=== PATIENT | female | born 1970 | race Caucasian/White ===

== ENCOUNTER 2019-05-25 02:55 | Inpatient (IN) | payer OTHER ==
[2019-05-25] MEDS ORDERED: ONDANSETRON 4 MG/2 ML VIAL ONE (03:49)
[2019-05-25] MEDS ORDERED: NA CHLORIDE 0.9% 1,000 ML ONE ×2 (03:49→09:02)
[2019-05-25 04:19] LABS: Absolute Lymphocytes (CBC) 2.7 K/uL (0.7-4.9); Basophils % 0.7 % (0-1.3); Eosinophils % 1.4 % (0-4.4); Lymphocytes % 24.3 % (15.3-44.8); MPV 9.2 fL (7.6-11.3); Monocytes % 9.6 % (3.3-12.3); RBC Red Blood Cell Count 3.84 M/uL (3.86-4.86)
[2019-05-25] MEDS ORDERED: NA CHLORIDE 0.9% 250 ML ONE (04:19)
[2019-05-25] MEDS ORDERED: PROMETHAZINE 25 MG/ML VIAL ONE ×3 (04:19→09:08)
[2019-05-25 04:43] LABS: ALT/SGPT 16 U/L (12-78); AST/SGOT 17 U/L (15-37); Albumin 3.6 g/dL (3.4-5.0); Alkaline Phosphatase 70 U/L (45-117); BUN Blood Urea Nitrogen 15 mg/dL (7-18); Bicarbonate 26 mmol/L (21-32); Bilirubin Direct < 0.1 mg/dL (0-0.2); Bilirubin Total 0.3 mg/dL (0.2-1.0); Glucose Level 142 mg/dL (74-106); Lipase 111 U/L (73-393); Magnesium 1.9 mg/dL (1.8-2.4); NT PRO-BNP 51 pg/mL (<125); Sodium Level 140 mmol/L (136-145); Troponin (Emerg Dept Use Only) < 0.02 ng/mL (0.0-0.045)
[2019-05-25] MEDS ORDERED: NA CHLORIDE 0.9% 100 ML IV ONE ×2 (04:44→05:02)
[2019-05-25] MEDS ORDERED: FAMOTIDINE 20 MG/2 ML VIAL IV ONE ×2 (04:44→09:02)
[2019-05-25] MEDS ORDERED: EPINEPHRINE/PF 1 MG/ML AMP ONE (05:51)
[2019-05-25] MEDS ORDERED: NA CHLORIDE 0.9% 500 ML ONE (06:10)
[2019-05-25] MEDS ORDERED: DIPHENHYDRAMINE 50 MG/ML VIAL ONE (06:10)
[2019-05-25] MEDS ORDERED: METOCLOPRAMIDE 10 MG/2mL INJ ONE (06:10)
[2019-05-25] MEDS ORDERED: KETOROLAC 30 MG/ML INJ ONE (06:49)
[2019-05-25] MEDS ORDERED: METRONIDAZOLE 500mg IVPB 500 MG/100 ML BAG IV ONE ×2 (06:49→10:56)
--- NOTE | 2019-05-25 06:59 | ER ---
Nurse's Notes [facility] Name: Rebekah Vila Age: 48 yrs Sex: Female : 1970 Arrival Date: 05/25/2019 Time: 02:57 Bed 6 Private MD: Diagnosis: acute abdominal pain;acute colitis;acute vomtiing and diarrhea Presentation: 05/25 03:20 Presenting complaint: Patient states: vomiting, now diarrhea, started two hours ago. I ch feel terrible. Transition of care: patient was not received from another setting of care. Onset of symptoms was May 25, 2019 at 01:30. Risk Assessment: Do you want to hurt yourself or someone else? Patient reports no desire to harm self or others. Initial Sepsis Screen: Does the patient meet any 2 criteria? No. Patient's initial sepsis screen is negative. Does the patient have a suspected source of infection? No. Patient's initial sepsis screen is negative. Care prior to arrival: None. 03:20 Method Of Arrival: Ambulatory 03:20 Acuity: TAIWO 2 Triage Assessment: 03:21 General: Appears distressed, uncomfortable, Behavior is anxious, restless. Pain: Complains of pain in abdomen Pain currently is 7 out of 10 on a pain scale. GI: Reports diarrhea, nausea, vomiting. Historical: - Allergies: 03:21 No Known Allergies; - Home Meds: 03:21 None [Active]; ch - PMHx: 03:21 intersticial cystitis; ch - PSHx: 03:21 None; 06:57 abdominoplasty; breast augmentation; - Immunization history:: Adult Immunizations up to date, Flu vaccine is not up to date. - Social history:: Smoking status: Patient/guardian denies using tobacco, Patient/guardian denies using alcohol, street drugs. - Ebola Screening: : Patient negative for fever greater than or equal to 101.5 degrees Fahrenheit, and additional compatible Ebola Virus Disease symptoms Patient denies exposure to infectious person Patient denies travel to an Ebola-affected area in the 21 days before illness onset No symptoms or risks identified at this time. - Family history:: not pertinent. - Hospitalizations: : No recent hospitalization is reported. Screenin:35 Abuse screen: Denies threats or abuse. Denies injuries from another. Nutritional ch screening: No deficits noted. Tuberculosis screening: No symptoms or risk factors identified. Fall Risk None identified. Assessment: 04:08 General: Appears in no apparent distress. uncomfortable. Neuro: Level of Consciousness ch is listless, Oriented to person, place, time, situation, Receivables Specialist are equal bilaterally Moves all extremities. Gait is steady, Speech is slurred, Facial symmetry appears normal, Facial symmetry: tongue is midline, Pupils are PERRLA, Reports dizziness, pt states she does not feel well, nauseous, dizzy, and "off". Cardiovascular: Heart tones S1 S2 present pt heart rate is irregular, heart sounds distant. . Capillary refill < 3 seconds in bilateral fingers toes pt extremities are cool, pt is extremely diaphoretic. . Pulses are all present. pulse is irregular, but strong. Respiratory: Airway is patent Respiratory effort is even, unlabored. GI: Abdomen is flat, non-distended, Pt is actively vomiting bile, undigested food, Bowel sounds present X 4 quads. Abd is soft and non tender X 4 quads. Reports lower abdominal pain, upper abdominal pain, cramping, diarrhea, nausea, vomiting. : No signs and/or symptoms were reported regarding the genitourinary system. Derm: Skin is intact, Skin is diaphoretic, Skin is pale, Skin temperature is cool. 04:27 Reassessment: Patient appears in no apparent distress at this time. pt is under bear hugger, states she feels better. pt sill c/o nausea. 05:00 Reassessment: pt has watery diarrhea. 05:47 Reassessment: 0510 pt is vomiting. medicated per orders. 0530, pt vomiting again. now pt is vomiting in bed. every time pt vomits, pt bradycardic into low 40's. 05:52 Reassessment: pt vomiting again. we are giving medications some time to work, pt verb understanding. 05:59 Reassessment: Patient appears in no apparent distress at this time. Patient and/or family updated on plan of care and expected duration. Pain level reassessed. pt vomiting again, medicated per orders. 06:31 Reassessment: Patient appears in no apparent distress at this time. Patient and/or family updated on plan of care and expected duration. Pain level reassessed. Patient is alert, oriented x 3, equal unlabored respirations, skin warm/dry/pink. pt no longer vomiting Patient states feeling better. Patient states symptoms have improved. 06:58 Reassessment: Patient appears in no apparent distress at this time. report given to [facility] floor nurse in case pt is admitted. awaiting next er shift. Vital Signs: 03:21 BP 160 / 89; Pulse 44; Resp 26; Temp 93.4(O); Pulse Ox 99% on R/A; Pain 10/10; ch 04:08 BP 132 / 77; Pulse 47; Resp 13; Temp 98(R); Pulse Ox 99% on R/A; Pain 7/10; ch 04:50 BP 122 / 64; Pulse 62; Resp 22; Temp 97(O); Pulse Ox 99% on R/A; Pain 7/10; ch 05:20 BP 140 / 85; Pulse 39; Resp 22; Temp 97.8(O); Pulse Ox 99% on R/A; Pain 6/10; ch 05:48 BP 117 / 76; Pulse 64; Resp 15; Pulse Ox 99% on R/A; Pain 4/10; ch 06:31 BP 111 / 66; Pulse 70; Resp 16; Temp 98.8; Pulse Ox 99% on R/A; Pain 4/10; ch 03:21 pt has been vomiting and needs to have diarrhea. will recheck temp once pt is not ch vomiting 04:08 pt repeat oral temp was 94.3. rectal performed to get core temp 04:50 pt HR has increased since fluids, medication, and bear hugger. Vitals: 04:08 Cardiac Rhythm Assessment Irregular Other pt heart rate is irreguar sinus grabiel. ch 04:50 Cardiac Rhythm Assessment Sinus rhythm Other irregular. ED Course: 02:57 Patient arrived in ED. am2 03:15 Thom Bird MD is Attending Physician. wa 03:19 Marie Manuel, JOHANNE is Primary Nurse. 03:20 Triage completed. 03:21 Arm band placed on left wrist. Patient placed in an exam room, on a stretcher, on quality assurance monitor body, on pulse oximetry. 03:35 Appears restless. Appears tearful. ch 03:35 Patient has correct armband on for positive identification. Bed in low position. Call light in reach. Side rails up X 1. Adult w/ patient. classroom monitor on. Pulse ox on. NIBP on. Warm blanket given. 03:35 No provider procedures requiring assistance completed. Inserted saline lock: 18 gauge ch in right antecubital area, using aseptic technique. Blood collected. 04:07 XRAY Chest (1 view) In Process Unspecified. EDMS 05:31 CT Abd/Pelvis - IV Contrast Only In Process Unspecified. EDMS 06:57 Keyon Joya DO is Hospitalizing Provider. wa 07:15 US Abdomen Limited In Process Unspecified. EDMS Administered Medications: 03:36 Drug: NS 0.9% 1000 ml Route: IV; Rate: 1 bolus; Site: right antecubital; ch 03:36 Drug: Zofran 4 mg Route: IVP; Site: right antecubital; ch 05:51 Follow up: Response: No adverse reaction; No change in condition ch 04:10 Drug: Phenergan 12.5 mg Route: IVP; Site: right antecubital; ch 04:30 Follow up: Response: No adverse reaction; Vomiting unchanged ch 04:28 Drug: Pepcid 20 mg Route: IVP; Site: right antecubital; ch 05:51 Follow up: Response: No adverse reaction; No change in condition ch 04:50 Drug: Phenergan 12.5 mg Route: IVP; Site: right antecubital; ch 05:50 Follow up: Response: No adverse reaction; Vomiting unchanged ch 05:49 Drug: NS 0.9% 500 ml Route: IV; Rate: bolus; Site: right antecubital; ch 05:49 Drug: EPINEPHrine 1mg/mL 1:1,000 0.3 ml Route: Sub-Q; Site: left thigh; ch 06:02 Follow up: Response: No adverse reaction; No change in condition ch 06:01 Drug: Benadryl 12.5 mg Route: IVP; Site: right antecubital; ch 06:29 Follow up: Response: No adverse reaction; Marked relief of symptoms ch 06:02 Drug: Reglan 5 mg {Note: I verify with physician he wants reglan after phenergan, Dr. chayito Bird states yes, medicate pt with reglan.} Route: IVP; Site: right antecubital; 06:29 Follow up: Response: No adverse reaction ch 06:29 Drug: TORadol 30 mg Route: IVP; Site: right antecubital; 06:30 Drug: Flagyl 500 mg Volume: 100 ml; Route: IVPB; Rate: 200 ml/hr; Infused Over: 30 ch mins; Site: right antecubital; Outcome: 06:58 Decision to Hospitalize by Provider. wa 13:15 Patient left the ED. sv Signatures: Dispatcher [employer] EDMarie Obregon RN RN Denise Rayo RN RN Symone Alcantar am2 Thom Bird MD MD ut Corrections: (The following items were deleted from the chart) 03:34 03:21 BP 160 / 89; Pulse 44bpm; Resp 26bpm; Temp 93.4F Oral; pt has been vomiting and ch needs to have diarrhea. ; ch
--- NOTE | 2019-05-25 06:59 | EDPHYS ---
Physician Documentation [facility] Name: Rebekah Vila Age: 48 yrs Sex: Female : 1970 Arrival Date: 05/25/2019 Time: 02:57 Bed 6 Private MD: ED Physician Thom Bird HPI: 05/25 03:44 This 48 yrs old Female presents to ER via Ambulatory with complaints of wa Nausea/Vomiting. 03:44 The patient presents with abdominal pain that is diffuse. Onset: The symptoms/episode wa began/occurred just prior to arrival. The symptoms do not radiate. Associated signs and symptoms: Pertinent positives: nausea and vomiting, vomiting, Pertinent negatives: diarrhea, fever, headache. The symptoms are described as achy. Modifying factors: The symptoms are alleviated by nothing, the symptoms are aggravated by nothing. Severity of pain: At its worst the pain was moderate in the emergency department the pain is unchanged. The patient has not experienced similar symptoms in the past. The patient has not recently seen a physician. states eat chicken at a restaurant tonight. began with pain and vomiting when she got home. Historical: - Allergies: 03:21 No Known Allergies; ch - Home Meds: 03:21 None [Active]; ch - PMHx: 03:21 intersticial cystitis; ch - PSHx: 03:21 None; ch 06:57 abdominoplasty; breast augmentation; ch - Immunization history:: Adult Immunizations up to date, Flu vaccine is not up to date. - Social history:: Smoking status: Patient/guardian denies using tobacco, Patient/guardian denies using alcohol, street drugs. - Ebola Screening: : Patient negative for fever greater than or equal to 101.5 degrees Fahrenheit, and additional compatible Ebola Virus Disease symptoms Patient denies exposure to infectious person Patient denies travel to an Ebola-affected area in the 21 days before illness onset No symptoms or risks identified at this time. - Family history:: not pertinent. - Hospitalizations: : No recent hospitalization is reported. ROS: 03:46 Constitutional: Negative for fever, chills, and weight loss, Eyes: Negative for injury, wa pain, redness, and discharge, ENT: Negative for injury, pain, and discharge, Neck: Negative for injury, pain, and swelling, Cardiovascular: Negative for chest pain, palpitations, and edema, Respiratory: Negative for shortness of breath, cough, wheezing, and pleuritic chest pain, Back: Negative for injury and pain, : Negative for injury, bleeding, discharge, and swelling, MS/Extremity: Negative for injury and deformity, Skin: Negative for injury, rash, and discoloration, Neuro: Negative for headache, weakness, numbness, tingling, and seizure, Psych: Negative for depression, anxiety, suicide ideation, homicidal ideation, and hallucinations. 03:46 All other systems are negative. Exam: 03:47 Head/Face: Normocephalic, atraumatic. Eyes: Pupils equal round and reactive to light, wa extra-ocular motions intact. Lids and lashes normal. Conjunctiva and sclera are non-icteric and not injected. Cornea within normal limits. Periorbital areas with no swelling, redness, or edema. ENT: Nares patent. No nasal discharge, no septal abnormalities noted. Tympanic membranes are normal and external auditory canals are clear. Oropharynx with no redness, swelling, or masses, exudates, or evidence of obstruction, uvula midline. Mucous membranes moist. Neck: Trachea midline, no thyromegaly or masses palpated, and no cervical lymphadenopathy. Supple, full range of motion without nuchal rigidity, or vertebral point tenderness. No Meningismus. Chest/axilla: Normal chest wall appearance and motion. Nontender with no deformity. No lesions are appreciated. Cardiovascular: Regular rate and rhythm with a normal S1 and S2. No gallops, murmurs, or rubs. Normal PMI, no JVD. No pulse deficits. Respiratory: Lungs have equal breath sounds bilaterally, clear to auscultation and percussion. No rales, rhonchi or wheezes noted. No increased work of breathing, no retractions or nasal flaring. Back: No spinal tenderness. No costovertebral tenderness. Full range of motion. MS/ Extremity: Pulses equal, no cyanosis. Neurovascular intact. Full, normal range of motion. Neuro: Awake and alert, GCS 15, oriented to person, place, time, and situation. Cranial nerves II-XII grossly intact. Motor strength 5/5 in all extremities. Sensory grossly intact. Cerebellar exam normal. Normal gait. Psych: Awake, alert, with orientation to person, place and time. Behavior, mood, and affect are within normal limits. 03:47 Constitutional: The patient appears clammy. diaphoretic. pale 03:47 Abdomen/GI: Inspection: abdomen appears normal, Bowel sounds: normal, in all quadrants, Palpation: moderate abdominal tenderness, in all quadrants. 03:47 Skin: pallor. clammy. diaphoretic. Vital Signs: 03:21 BP 160 / 89; Pulse 44; Resp 26; Temp 93.4(O); Pulse Ox 99% on R/A; Pain 10/10; ch 04:08 BP 132 / 77; Pulse 47; Resp 13; Temp 98(R); Pulse Ox 99% on R/A; Pain 7/10; ch 04:50 BP 122 / 64; Pulse 62; Resp 22; Temp 97(O); Pulse Ox 99% on R/A; Pain 7/10; ch 05:20 BP 140 / 85; Pulse 39; Resp 22; Temp 97.8(O); Pulse Ox 99% on R/A; Pain 6/10; ch 05:48 BP 117 / 76; Pulse 64; Resp 15; Pulse Ox 99% on R/A; Pain 4/10; ch 06:31 BP 111 / 66; Pulse 70; Resp 16; Temp 98.8; Pulse Ox 99% on R/A; Pain 4/10; ch 03:21 pt has been vomiting and needs to have diarrhea. will recheck temp once pt is not ch vomiting 04:08 pt repeat oral temp was 94.3. rectal performed to get core temp ch 04:50 pt HR has increased since fluids, medication, and bear hugger. ch MDM: 03:15 Patient medically screened. tn 03:48 Differential diagnosis: food poisoning? vomiting with assoc vagal symptoms? consider tn thyroid dysfunction. 06:54 Data reviewed: vital signs, nurses notes. Test interpretation: by ED physician or tn midlevel provider: CT abd/pelvis: extensive colitis. distended gallbladder with pericholecystic fluid. labs noted wnl. EKG: HR 73. sinus. diffuse inferior-lateral T wave inversions. . Response to treatment: the patient's symptoms have mildly improved after treatment. Physician consultation: Keyon Joya DO. 05/25 03:31 Order name: Basic Metabolic Panel; Complete Time: 05:24 tn 05/25 03:31 Order name: CBC with Diff; Complete Time: 04:30 05/25 03:31 Order name: Creatinine for Radiology; Complete Time: 05:24 05/25 03:31 Order name: Hepatic Function; Complete Time: 05:24 05/25 03:31 Order name: Lipase; Complete Time: 05:24 05/25 03:32 Order name: Magnesium; Complete Time: 05:24 tn 05/25 03:32 Order name: NT PRO-BNP; Complete Time: 05:24 tn 05/25 03:32 Order name: PT-INR; Complete Time: 04:30 tn 05/25 04:07 Order name: Troponin (Emerg Dept Use Only); Complete Time: 05:24 EDMS 05/25 04:07 Order name: Thyroid Stimulating Hormone; Complete Time: 05:24 EDMS 05/25 04:21 Order name: UDS; Complete Time: 08:12 tn 05/25 04:48 Order name: T4 Free; Complete Time: 05:24 EDMS 05/25 03:32 Order name: XRAY Chest (1 view) tn 05/25 04:43 Order name: CT Abd/Pelvis - IV Contrast Only 05/25 05:43 Order name: Stool Culture 05/25 05:43 Order name: CDIFF 05/25 05:43 Order name: Fecal Leukocyte Stain 05/25 05:43 Order name: Occult Blood; Complete Time: 08:12 05/25 05:43 Order name: Ova And Parasites 05/25 05:43 Order name: Rotavirus Antigen; Complete Time: 08:12 05/25 06:22 Order name: US Abdomen Limited 05/25 06:52 Order name: Urine Dipstick--Ancillary (enter results) co05/25 06:52 Order name: Urine --Ancillary (enter results) 05/25 03:31 Order name: IV Saline Lock; Complete Time: 03:37 05/25 03:31 Order name: Labs collected and sent; Complete Time: 03:37 05/25 03:32 Order name: EKG; Complete Time: 03:34 05/25 03:32 Order name: Cardiac monitoring; Complete Time: 03:37 05/25 03:32 Order name: EKG - Nurse/Tech; Complete Time: 03:37 05/25 03:32 Order name: O2 Per Protocol; Complete Time: 03:37 wa 05/25 03:32 Order name: O2 Sat Monitoring; Complete Time: 03:37 wa 05/25 06:26 Order name: EKG; Complete Time: 06:27 05/25 06:26 Order name: EKG - Nurse/Tech; Complete Time: 06:28 05/25 06:27 Order name: EKG - Nurse/Tech; Complete Time: 06:28 ch Administered Medications: 03:36 Drug: NS 0.9% 1000 ml Route: IV; Rate: 1 bolus; Site: right antecubital; ch 03:36 Drug: Zofran 4 mg Route: IVP; Site: right antecubital; ch 05:51 Follow up: Response: No adverse reaction; No change in condition ch 04:10 Drug: Phenergan 12.5 mg Route: IVP; Site: right antecubital; ch 04:30 Follow up: Response: No adverse reaction; Vomiting unchanged ch 04:28 Drug: Pepcid 20 mg Route: IVP; Site: right antecubital; ch 05:51 Follow up: Response: No adverse reaction; No change in condition ch 04:50 Drug: Phenergan 12.5 mg Route: IVP; Site: right antecubital; ch 05:50 Follow up: Response: No adverse reaction; Vomiting unchanged ch 05:49 Drug: NS 0.9% 500 ml Route: IV; Rate: bolus; Site: right antecubital; ch 05:49 Drug: EPINEPHrine 1mg/mL 1:1,000 0.3 ml Route: Sub-Q; Site: left thigh; ch 06:02 Follow up: Response: No adverse reaction; No change in condition ch 06:01 Drug: Benadryl 12.5 mg Route: IVP; Site: right antecubital; ch 06:29 Follow up: Response: No adverse reaction; Marked relief of symptoms ch 06:02 Drug: Reglan 5 mg {Note: I verify with physician he wants reglan after phenergan, Dr. chayito Bird states yes, medicate pt with reglan.} Route: IVP; Site: right antecubital; 06:29 Follow up: Response: No adverse reaction ch 06:29 Drug: TORadol 30 mg Route: IVP; Site: right antecubital; ch 06:30 Drug: Flagyl 500 mg Volume: 100 ml; Route: IVPB; Rate: 200 ml/hr; Infused Over: 30 ch mins; Site: right antecubital; Disposition: 05/25/19 06:58 Hospitalization ordered by Keyon Joya for Inpatient Admission. Preliminary diagnosis are acute abdominal pain, acute colitis, acute vomtiing and diarrhea. - Bed requested for Telemetry/MedSurg (Inpatient). - Status is Inpatient Admission. sv - Condition is Stable. - Problem is new. - Symptoms have improved. UTI on Admission? No Signatures: Dispatcher [employer] EDMS Marie Manuel RN RN Denise Rayo RN RN Rahul Corea em1 Jacqueline Gage RN RN Thom Bird MD MD wa Singer, Phillip, MD MD ps1 Corrections: (The following items were deleted from the chart) 04:07 03:33 TROPONIN (EMERG DEPT USE ONLY)+C.LAB.BRZ ordered. EDID EDMS 04:07 03:51 THYROID STIMULAT HORMONE+C.LAB.BRZ ordered. [facility] EDID 12:14 06:58 Hospitalization Ordered by Keyon Joya DO for Inpatient Admission. Preliminary diagnosis is acute abdominal pain; acute colitis; acute vomtiing and diarrhea. Bed requested for Telemetry/MedSurg (Inpatient). Status is Inpatient Admission. Condition is Stable. Problem is new. Symptoms have improved. UTI on Admission? No. tn 12:46 12:14 05/25/2019 06:58 Hospitalization Ordered by Keyon Joya DO for Inpatient em1 Admission. Preliminary diagnosis is acute abdominal pain; acute colitis; acute vomtiing and diarrhea. Bed requested for [facility] ER HOLD. Status is Inpatient Admission. Condition is Stable. Problem is new. Symptoms have improved. UTI on Admission? No. 13:15 12:46 05/25/2019 06:58 Hospitalization Ordered by Keyon Joya DO for Inpatient sv Admission. Preliminary diagnosis is acute abdominal pain; acute colitis; acute vomtiing and diarrhea. Bed requested for Telemetry/MedSurg (Inpatient). Status is Inpatient Admission. Condition is Stable. Problem is new. Symptoms have improved. UTI on Admission? No. em1
[2019-05-25 07:14] LABS: Barbiturates NEGATIVE (NEGATIVE); Benzodiazepines NEGATIVE (NEGATIVE); Cocaine NEGATIVE (NEGATIVE); METHAMPHETAM NEGATIVE (NEGATIVE); Methadone NEGATIVE (NEGATIVE); Opiates NEGATIVE (NEGATIVE); Phencyclidine NEGATIVE (NEGATIVE); THC Cannibis POSITIVE (NEGATIVE)
[2019-05-25] MEDS ORDERED: ONDANSETRON 4 MG/2 ML VIAL IV PRN (07:53)
[2019-05-25] MEDS ORDERED: ACETAMINOPHEN 650MG/RECT SUPP PR PRN (07:53)
[2019-05-25] MEDS ORDERED: ACETAMINOPHEN 500 MG TAB PO PRN (07:53)
[2019-05-25] MEDS ORDERED: Levofloxacin500mg IV 500 MG/100 ML BAG IV ONE (08:04)
[2019-05-25] MEDS ORDERED: CIPROFLOXACIN 400mg IV 400 MG/200 ML BAG IV ONE (09:02)
[2019-05-25] MEDS ORDERED: ENOXAPARIN 40 MG/0.4 ML SQ ONE (09:02)
--- NOTE | 2019-05-25 09:14 | RAD REPORT ---
EXAM DESCRIPTION: RAD - Chest Single View - 05/25/2019 4:04 am CLINICAL HISTORY: Abdominal pain COMPARISON: None. TECHNIQUE: AP portable chest image was obtained 0358 hours . FINDINGS: Lungs are clear. Heart and vasculature are normal. No measurable pleural effusion and no p neumothorax. No acute bony abnormality seen. No acute aortic findings suspected. IMPRESSION: No acute cardiopulmonary process.
[2019-05-25] MEDS: FAMOTIDINE 20 MG/2 ML VIAL IV SCH ×2 (09:16→21:42)
[2019-05-25] MEDS: NA CHLORIDE 0.9% 1,000 ML IV SCH ×2 (09:16→20:03)
[2019-05-25] MEDS: PROMETHAZINE 25 MG/ML VIAL IV PRN ×3 (09:16→21:42)
[2019-05-25] MEDS: ENOXAPARIN 40 MG/0.4 ML SQ SCH (09:16)
[2019-05-25] MEDS: CIPROFLOXACIN 400mg IV 400 MG/200 ML BAG IV SCH ×2 (09:16→21:43)
--- NOTE | 2019-05-25 09:16 | RAD REPORT ---
EXAM DESCRIPTION: US - Abdomen Exam Limited - 05/25/2019 7:15 am CLINICAL HISTORY: Abdominal pain COMPARISON: CT study May 25 FINDINGS: No gallstones or sludge identified. No gallbladder wall thickening or edema seen on this s tudy. No pericholecystic fluid is identified. No common duct stone or biliary tree dilatation identified. IMPRESSION: Normal gallbladder and biliary tree ultrasound. Ultrasound findings do not match the questionable gallbladder findings detailed on the CT study.
[2019-05-25 09:29] VITALS: BMI 23.8
--- NOTE | 2019-05-25 09:40 | RAD REPORT ---
EXAM DESCRIPTION: CT - Abdomen Pelvis W Contrast - 05/25/2019 6:29 am CLINICAL HISTORY: The patient is 48 years old and is Female; abd pain, vomiting;Abd pain TECHNIQUE: Axial computed tomography images of the abdomen and pelvis with intravenous contrast. S agittal and coronal reformatted images were created and reviewed. This CT exam was performed using one or more of the following dose reduction techniques: automated exposure control, adjustment of t he mA and/or kV according to patient size, and/or use of iterative reconstruction technique. COMPARISON: No relevant prior studies available. FINDINGS: LUNG BASES: Calcified granuloma within the left lower lobe is noted. ABDOMEN: LIVER: A 1.6 cm cyst within the left hepatic lobe is present. The liver is otherwise unremarkabl e. GALLBLADDER AND BILE DUCTS: The gallbladder is distended. Mild biliary dilatation is noted. Ther e is no calcified gallstones. PANCREAS: No ductal dilation. No mass. SPLEEN: Unremarkable. ADRENALS: Unremarkable. No mass. KIDNEYS AND URETERS: Unremarkable. No solid mass. No hydronephrosis. STOMACH AND BOWEL: Mild diffuse mucosal thickening throughout the colon is noted. The stomach is decompressed. The small bowel is normal in caliber. There is no bowel obstruction. PELVIS: APPENDIX: The appendix is normal in caliber without surrounding inflammation. BLADDER: The bladder is significantly distended. REPRODUCTIVE: A 2.6 cm left ovarian cyst is present. No follow-up imaging is recommended. The ut erus and right ovary are normal. ABDOMEN and PELVIS: INTRAPERITONEAL SPACE: Unremarkable. No free air. No significant fluid collection. BONES/JOINTS: No acute fracture. SOFT TISSUES: Breast implants are partially visualized. VASCULATURE: Unremarkable. No abdominal aortic aneurysm. LYMPH NODES: Unremarkable. No enlarged lymph nodes. IMPRESSION: 1. Findings suggestive of extensive colitis. 2. Distended gallbladder with mild biliary dilatation and trace pericholecystic inflammation/fluid. Findings are concerning for acute cholecystitis. Electronically signed by: Florence Rutherford MD 05/25/2019 5:37 AM CDT Due to temporary technical issues with the PACS/Fluency reporting system, reports are being signed by the in house radiologist as a courtesy to ensure prompt reporting. The interpreting radiologist is f ully responsible for the content of the report.
[2019-05-25] MEDS: KCL 20 MEQ/100 mL IVPB 20 MEQ/100 ML BAG IV SCH ×3 (10:42→23:34)
[2019-05-25] MEDS: METRONIDAZOLE 500mg IVPB 500 MG/100 ML BAG IV SCH ×2 (10:43→17:13)
[2019-05-25] MEDS ORDERED: KCL 20 MEQ/100 mL IVPB 20 MEQ/100 ML BAG IV ONE (10:55)
--- NOTE | 2019-05-25 12:50 | EKG ---
Test Date: 2019-05-25 Test Time: 06:37:13 Strawhat Sizer: [id number] MEASUREMENT RESULTS: Intervals: Rate: 73 LA: 122 QRSD: 78 QT: 450 QTc: 495 [place]: P: 66 LA: 122 QRS: 66 T: -82 INTERPRETIVE STATEMENTS: Sinus rhythm with premature atrial complexes Anterior infarct, age undetermined ST & T wave abnormality, consider inferolateral ischemia Abnormal ECG Compared to ECG 05/25/2019 04:36:55 Atrial premature complex(es) now present Myocardial infarct finding now present ST (T wave) deviation now present Sinus bradycardia no longer present Sinus arrhythmia no longer present T-wave abnormality no longer present Possible ischemia still present Electronically Signed On 05-25-19 12:49:21 CDT by Kodak Braxton
--- NOTE | 2019-05-25 12:51 | EKG ---
Test Date: 2019-05-25 Test Time: 04:36:55 Electrical Engineering Teacher: IGLESIA MEASUREMENT RESULTS: Intervals: Rate: 59 WA: 146 QRSD: 76 QT: 448 QTc: 443 [place]: P: 68 WA: 146 QRS: 76 T: 35 INTERPRETIVE STATEMENTS: Sinus bradycardia with sinus arrhythmia T wave abnormality, consider anterior ischemia Abnormal ECG Compared to ECG 05/25/2019 04:35:55 T-wave abnormality now present Sinus rhythm no longer present ST (T wave) deviation no longer present Prolonged QT interval no longer present Possible ischemia still present Electronically Signed On 05-25-19 12:49:25 CDT by Kodak Braxton
--- NOTE | 2019-05-25 12:51 | EKG ---
Test Date: 2019-05-25 Test Time: 03:52:29 Civil Preparedness Officer: IGLESIA MEASUREMENT RESULTS: Intervals: Rate: 47 [place]: 108 QRSD: 82 QT: 510 QTc: 451 [place]: P: 76 [place]: 108 QRS: 69 T: 63 INTERPRETIVE STATEMENTS: Sinus bradycardia with short [place] with premature supraventricular complexes Minimal voltage criteria for LVH, may be normal variant T wave abnormality, consider anterior ischemia Abnormal ECG No previous ECG available for comparison Electronically Signed On 05-25-19 12:49:26 CDT by Kodak Braxton
--- NOTE | 2019-05-25 13:56 | P.HP ---
Certification for Inpatient Patient admitted to: Inpatient With expected LOS: >2 Midnights Patient will require the following post-hospital care: None Practitioner: I am a practitioner with admitting privileges, knowledge of patient current condition, hospital course, and medical plan of care. Services: Services provided to patient in accordance with Admission requirements found in Title 42 Section 412.3 of the Code of Federal Regulations Patient History Date of Service: 05/25/19 Primary Care Provider: Dr. Vasques([place]) Reason for admission: Nausea, vomiting and abdominal pain History of Present Illness: 48-year-old female presented to the emergency room with increased nausea, vomiting and abdominal pain. She reported nausea and vomiting 2 days ago. She reported that she went to a local restaurant and ate some chicken with mushrooms. Since that time she has been having increasing nausea and vomiting. She start to have diffuse abdominal pain. She was not able to take in good oral intake. Since her symptoms she came to the ER for further evaluation. Patient denied any significant fever. No sick contacts noted. Patient has not had GI problems in the past. In the ER patient evaluated. Patient appeared heel and dehydrated. Hemoglobin 12.8, he white count 11. Sodium 140, potassium 3.0. BUN of 15, creatinine 0.73 with a glucose of 142. Lipase, ALT, ALT, and total bilirubin within normal range. CT scan showed extensive colitis. Abdominal ultrasound showed normal gallbladder. Due to the persistent abdominal pain and nausea the patient was admitted for further treatment. When I saw the patient ER, she still reported some diffuse abdominal pain. She did report some diarrhea as well. Patient with no prior medical problems. Allergies No Known Allergies Allergy (Unverified 05/25/19 07:51) Home medications list reviewed: Yes Home Medications: Citalopram [Celexa] 20 mg PO DAILY 05/25/19 Duloxetine HCl [Cymbalta] 60 mg PO DAILY 05/25/19 Hydrocodone Bit/Acetaminophen [Hydrocodon-Acetaminophn 10-325] 1 each PO QID 07/06 - Past Medical/Surgical History Has patient received pneumonia vaccine in the past: No Diabetic: No -: Interstitial cystitis -: Bilateral breast augmentation -: Tummy tuck -: Tubal ligation Psychosocial/ Personal History: Patient is single. - Family History Family History: Reviewed- Non-Contributory - Social History Smoking Status: Never smoker Alcohol use: No CD- Drugs: No Caffeine use: No Place of Residence: Home Review of Systems General: Weakness, Malaise, As per HPI Eyes: Unremarkable ENT: Unremarkable Respiratory: Unremarkable Cardiovascular: As per HPI Gastrointestinal: Nausea, Vomiting, Abdominal Pain, Diarrhea, As per HPI Genitourinary: Unremarkable Musculoskeletal: Unremarkable Integumentary: Unremarkable Neurological: Unremarkable Lymphatics: Unremarkable Physical Examination - Vital Signs Temperature: 98 F Blood Pressure: 127/79 Pulse: 59 Respirations: 16 Pulse Ox (%): 100 - Physical Exam General: Alert, Oriented x3, Cooperative, Mild distress, Other (Patient appears dehydrated.) HEENT: Atraumatic, Normocephalic, PERRLA, Other (Dry mucous membranes), EOMI Neck: Supple, No Thyromegaly Respiratory: Clear to auscultation bilaterally, Normal air movement Cardiovascular: Normal pulses, Regular rate/rhythm Gastrointestinal: Hypoactive, Soft and benign, Non-distended, No masses, No rebound, Tenderness (Tenderness throughout), Guarding (Mild guarding) Musculoskeletal: No erythema, No tenderness, No warmth Integumentary: No tenderness/swelling, No erythema, No warmth, No cyanosis Neurological: Normal speech, Normal strength at 5/5 x4 extr, Normal tone, Normal affect - Studies Laboratory Data (last 24 hrs) 05/25/19 03:50: PT 11.8, INR 1.00 05/25/19 03:50: Creatinine 0.73 05/25/19 03:50: WBC 11.0 H, Hgb 12.8, Hct 38.0, Plt Count 318 05/25/19 03:50: Sodium 140, Potassium 3.0 L, BUN 15, Creatinine 0.68, Glucose 142 H, Magnesium 1.9, Total Bilirubin 0.3, AST 17, ALT 16, Alkaline Phosphatase 70, Lipase 111 Microbiology Data (last 24 hrs): 05/25/19 06:00 Stool Rotavirus Antigen - Final 05/25/19 06:00 Stool Occult Blood - Final Assessment and Plan - Plan Impression: Diffuse abdominal pain with nausea and vomiting secondary to extensive colitis Hypokalemia with dehydration Diarrhea related to colitis Plan: Patient will be admitted for further evaluation and treatment. Patient started on IV Cipro and Flagyl. Will continue with aggressive IV fluids. Will provide medication for pain and nausea. Case discussed with surgery. No surgical intervention needed at this time. Will obtain blood and stool cultures. Will continue to reassess. Recheck lab tomorrow. Will start DVT prophylaxis- Lovenox. Anticipate discharge in the next 2-3 days. Discharge Plan: Home Plan to discharge in: Greater than 2 days - Advance Directives Does patient have a Living Will: No Does patient have a Durable POA for Healthcare: No - Code Status/Comfort Care Code Status Assessed: Yes (Patient is full code) Time Spent Managing Pts Care (In Minutes): 55
[2019-05-25 17:31] LABS: Urine Appearance CLEAR; Urine Bilirubin NEGATIVE (NEG); Urine Blood 1+ (NEG); Urine Color YELLOW; Urine Glucose 1+ (NEG); Urine Protein NEGATIVE (NEG); Urine Specific Gravity 1.015 (1.005-1.030); Urine Urobilinogen 0.2 mg/dL (0.2-1.0); Urine pH 7.5 (5.0-7.0)
[2019-05-25 18:24] LABS: Urine Bacteria <20 /HPF (<20); Urine Microscopic Reflex ORDER UMIC
[2019-05-25 18:25] LABS: Urine Culture Reflex Order NOT NEEDED
[2019-05-25] MEDS: MORPHINE 2 MG/ML SYR IV PRN ×2 (20:03→23:34)
[2019-05-26] MEDS: METRONIDAZOLE 500mg IVPB 500 MG/100 ML BAG IV SCH ×3 (01:24→18:34)
[2019-05-26] MEDS: PROMETHAZINE 25 MG/ML VIAL IV PRN (01:24)
[2019-05-26] MEDS: KCL 20 MEQ/100 mL IVPB 20 MEQ/100 ML BAG IV SCH (01:25)
[2019-05-26 06:14] LABS: Basophils % 0.5 % (0-1.3); Eosinophils % 0.1 % (0-4.4); Hematocrit 33.6 % (36.0-45.0); Lymphocytes % 21.8 % (15.3-44.8); Monocytes % 11.1 % (3.3-12.3); RBC Red Blood Cell Count 3.38 M/uL (3.86-4.86)
[2019-05-26 06:29] LABS: ALT/SGPT 13 U/L (12-78); AST/SGOT 10 U/L (15-37); Alkaline Phosphatase 56 U/L (45-117); BUN Blood Urea Nitrogen 10 mg/dL (7-18); Bicarbonate 26 mmol/L (21-32); Bilirubin Total 0.4 mg/dL (0.2-1.0); Glucose Level 87 mg/dL (74-106); Potassium 3.6 mmol/L (3.5-5.1); Sodium Level 144 mmol/L (136-145)
[2019-05-26] MEDS ORDERED: HYDROCODONE/APAP 10/325 TAB PO PRN (07:20)
--- NOTE | 2019-05-26 08:25 | CON ---
Date of Consultation: 05/25/2019 Brief History Of Present Illness: The patient is a 48-year-old female, who presents to the hospital with a bandlike pain in the infraumbilical position in a beltlike distribution in bilateral lower quadrants associated with nausea, vomiting, diarrhea for approximately 4-5 days. She states t hat the pain got significantly worse. The nausea got significantly worse and as such, because the na usea became profound, she could not tolerate any p.o. and she came to the hospital with the above-sta uzma complaints. She additionally had achy type of abdominal pain. No sharpness, no stabbing, no rad iation, no aggravating or alleviating factors. It was not exacerbated by eating. No sick contacts. No recent travel. No new food exposures. Past Medical History: She has had interstitial cystitis. Past Surgical History: She has had an abdominoplasty and breast augmentation. Allergies: NO KNOWN DRUG ALLERGIES. Home Medications: None. Social History: She denies smoking, alcohol, or recreational drug use. Review of Systems: A 10-point review of systems other than HPI, she feels fatigued. Physical Examination: Vital Signs: At the time of my examination, her BMI is 23. Her vital signs were, blood pressure 127 /79, pulse 59, respiratory rate 16, temperature 98.0. General: She is awake, alert, oriented. Psychiatric: She is appropriate. Conversive. She is in minimal discomfort at this time. HEENT: She is otherwise normocephalic. Sclerae icteric. Mucous membranes moist. Oropharynx clear. Neck: Supple. No JVD. Chest: Normal expansion and excursion. Cardiovascular: Regular rate, rhythm. Pulmonary: Clear to auscultation bilaterally. Abdomen: Soft with mild global tenderness to palpation worse in the bilateral lower quadrants and le ft lower quadrant is greatest point of point tenderness. No rebound. No guarding. No focal periton itis. Negative Berman sign. Extremities: No clubbing, cyanosis, or edema. Skin: Warm and dry. Laboratory Data: Reveals white blood count 11.0, hemoglobin is 12.8, hematocrit 38.0, platelet count is 318. Her PT 11.8, INR was 1.0. Sodium 140, potassium 3.0, chloride 105, carbon dioxide 26, BUN 15, creatinine 0.7, glucose is 142, calcium 8.5, magnesium 1.9, total bilirubin 0.3, direct component is less than 0.1. AST is normal at 17, ALT is 16, alkaline phosphatase is 70. Her lipase is 111. She had a THC screen, which was positive for cannabis. She had a chest x-ray performed as well as an abdominal ultrasound and pelvic CT. The official dictation is for chest x-ray as no acute cardiopul monary process. For her abdominal pelvis CT, this showed distended gallbladder with some mild biliar y dilatation and trace pericholecystic inflammation and fluid. Findings are concerning for cholecyst itis. The stomach and bowel, mild diffuse mucosal thickening throughout the colon is noted. The sto mach is decompressed. Small bowel is normal in caliber. There is no bowel obstruction. The appendi x is normal without surrounding inflammation. She had a followup ultrasound of the abdomen and right upper quadrant gallbladder ultrasound officially read as normal gallbladder and biliary tree ultraso und. Ultrasound findings did not match questionable gallbladder findings detailed on the CT study. Assessment And Plan: This is a 48-year-old female, who comes in with signs of colitis versus enterit is. 1.IV fluid hydration. 2.Antibiotic coverage. 3.Serial abdominal exams. 4.I feel that the patient does not have evidence of cholecystitis with a negative right upper quadra nt abdominal exam. No pain in the right upper quadrant and no signs of biliary colic. Therefore, I believe that this is likely a colitis/enteritis type picture given her clinical history and her abdom inal findings. Therefore, I recommend nonoperative management this time. However, I will follow suzie hughes with you should this change, we can consider an evaluation with a HIDA scan, should her symptoms c hange and show evidence of possible cholecystitis, but at this time, I recommend treating for colitis . Thank you for this interesting consult. KEA/HAIDER Voice ID: [id number] Report ID: [id number]
[2019-05-26] MEDS: NA CHLORIDE 0.9% 1,000 ML IV SCH ×2 (09:15)
[2019-05-26] MEDS: CIPROFLOXACIN 400mg IV 400 MG/200 ML BAG IV SCH ×2 (09:16→21:02)
[2019-05-26] MEDS: DULOXETINE 30 MG CAP PO SCH (09:16)
[2019-05-26] MEDS: CITALOPRAM 10 MG TABLET PO SCH (09:16)
[2019-05-26] MEDS: ENOXAPARIN 40 MG/0.4 ML SQ SCH (09:16)
[2019-05-26] MEDS: FAMOTIDINE 20 MG/2 ML VIAL IV SCH (09:17)
--- NOTE | 2019-05-26 09:50 | P.PN ---
Subjective Date of Service: 05/26/19 Primary Care Provider: Dr. Vasques([place]) Chief Complaint: Nausea, vomiting and abdominal pain Subjective: Improving (No more nausea, vomiting or abdominal pain.) Physical Examination - Vital Signs Temperature: 97.4 F Blood Pressure: 109/60 Pulse: 52 Respirations: 18 Pulse Ox (%): 99 - Physical Exam General: Alert, In no apparent distress, Oriented x3, Cooperative HEENT: Atraumatic Neck: Supple Respiratory: Clear to auscultation bilaterally, Normal air movement Cardiovascular: Normal pulses, Regular rate/rhythm Gastrointestinal: Normal bowel sounds, Soft and benign, Non-distended, No tenderness, No masses, No rebound, No guarding Musculoskeletal: No erythema, No tenderness, No warmth Integumentary: No tenderness/swelling, No erythema, No warmth, No cyanosis Neurological: Normal speech, Normal strength at 5/5 x4 extr, Normal tone, Normal affect - Studies Microbiology Data (last 24 hrs): 05/25/19 06:00 Stool Fecal Leukocyte Stain - Final 05/25/19 06:00 Stool Clostridium difficile Toxin Assay - Final 05/25/19 06:00 Stool Rotavirus Antigen - Final 05/25/19 06:00 Stool Occult Blood - Final Medications List Reviewed: Yes Assessment & Plan Discharge Plan: Home Plan to discharge in: 24 Hours Physician Review Additional Text: Impression: Diffuse abdominal pain with nausea and vomiting secondary to extensive colitis Hypokalemia with dehydration Diarrhea related to colitis Plan: Patient has improved. Will continue with IV Cipro and Flagyl. Continue IV fluids. Will start a clear liquid diet and advance as tolerated. So far cultures negative. Anticipate discharge in the next day. Case discussed with surgery who agrees with plan of care. Time Spent Managing Pts Care (In Minutes): 55
[2019-05-26] MEDS: NACHLORIDE 0.45% 1,000 ML IV SCH ×2 (10:00→20:00)
[2019-05-26] MEDS ORDERED: POTASSIUM CL SA 10 MEQ TAB PO ONE (19:42)
[2019-05-26] MEDS: LACTOBACILLUS/ACIDOPHILUS TAB PO SCH (21:01)
[2019-05-26] MEDS: FAMOTIDINE 20 MG TAB PO SCH (21:01)
[2019-05-27] MEDS: METRONIDAZOLE 500mg IVPB 500 MG/100 ML BAG IV SCH ×2 (01:00→09:00)
[2019-05-27] MEDS: NACHLORIDE 0.45% 1,000 ML IV SCH (06:00)
[2019-05-27 06:16] LABS: Absolute Lymphocytes (CBC) 1.8 K/uL (0.7-4.9); Hematocrit 33.1 % (36.0-45.0); Lymphocytes % 37.9 % (15.3-44.8); MPV 8.9 fL (7.6-11.3); RBC Red Blood Cell Count 3.31 M/uL (3.86-4.86)
[2019-05-27 06:36] LABS: ALT/SGPT 15 U/L (12-78); AST/SGOT 11 U/L (15-37); Alkaline Phosphatase 54 U/L (45-117); BUN Blood Urea Nitrogen 8 mg/dL (7-18); Bicarbonate 25 mmol/L (21-32); Bilirubin Total 0.3 mg/dL (0.2-1.0); Glucose Level 87 mg/dL (74-106); Magnesium 1.9 mg/dL (1.8-2.4); Potassium 3.5 mmol/L (3.5-5.1); Protein, Total 5.9 g/dL (6.4-8.2); Sodium Level 145 mmol/L (136-145)
[2019-05-27] MEDS: CIPROFLOXACIN 400mg IV 400 MG/200 ML BAG IV SCH (09:00)
[2019-05-27] MEDS ORDERED: POTASSIUM CL SA 10 MEQ TAB PO ONE (09:00)
[2019-05-27] MEDS: ENOXAPARIN 40 MG/0.4 ML SQ SCH (09:00)
--- NOTE | 2019-05-27 09:23 | P.DS ---
Admission Date: 05/25/19 Discharge Date: 05/27/19 Primary Care Provider: Dr. Vasques([place]) Disposition: ROUTINE DISCHARGE Discharge Condition: GOOD Reason for Admission: Nausea, vomiting and abdominal pain Consultations: Surgery-Dr. Molina Procedures: CT scan: IMPRESSION: 1. Findings suggestive of extensive colitis. 2. Distended gallbladder with mild biliary dilatation and trace pericholecystic inflammation/fluid. ABUS: FINDINGS: No gallstones or sludge identified. No gallbladder wall thickening or edema seen on this study. No pericholecystic fluid is identified. No common duct stone or biliary tree dilatation identified. IMPRESSION: Normal gallbladder and biliary tree ultrasound. Ultrasound findings do not match the questionable gallbladder findings detailed on the CT study. Medical Problem List: Diffuse abdominal pain with nausea and vomiting secondary to extensive colitis, likely infectious Hypokalemia with dehydration Diarrhea related to colitis Depression with anxiety Chronic pain THC positive Brief History of Present Illness: 48-year-old female presented to the emergency room with increased nausea, vomiting and abdominal pain. She reported nausea and vomiting 2 days ago. She reported that she went to a local restaurant and ate some chicken with mushrooms. Since that time she has been having increasing nausea and vomiting. She start to have diffuse abdominal pain. She was not able to take in good oral intake. Since her symptoms she came to the ER for further evaluation. Patient denied any significant fever. No sick contacts noted. Patient has not had GI problems in the past. In the ER patient evaluated. Patient appeared heel and dehydrated. Hemoglobin 12.8, he white count 11. Sodium 140, potassium 3.0. BUN of 15, creatinine 0.73 with a glucose of 142. Lipase, ALT, ALT, and total bilirubin within normal range. CT scan showed extensive colitis. Abdominal ultrasound showed normal gallbladder. Due to the persistent abdominal pain and nausea the patient was admitted for further treatment. When I saw the patient ER, she still reported some diffuse abdominal pain. She did report some diarrhea as well. Patient with no prior medical problems. Hospital Course: Patient presented with diffuse abdominal pain, nausea and vomiting. CT scan revealed extensive colitis. Patient was admitted for treatment. Patient received IV antibiotic therapy and IV fluids. Patient improved. C diff culture negative. Viral antigen negative. Stool culture negative. Patient seen and evaluated by surgery. No surgical intervention was required. No evidence of cholecystitis noted. At discharge she is without any significant nausea, vomiting or abdominal pain. Patient has tolerated her diet. At discharge she will continue with Cipro 500 mg 1 pill twice daily and Flagyl 500 mg 3 times a day for 7 days. Patient may continue with a low residue GI soft diet. Recommend follow up with GI to establish care. Patient will require colonoscopy in 4-6 weeks to further evaluate. Patient with underlying depression with anxiety. At discharge she may continue with her medication of Celexa 10 mg daily and Cymbalta 60 mg daily. Further adjustment can be done by her PCP. Patient with chronic pain. Patient may continue with Independence as needed. Recommend to follow up with pain management to further monitor and address. Patient was positive for THC. THC education will be provided. Vital Signs/Physical Exam: Temp Pulse Resp BP Pulse Ox 97.8 F 55 16 109/62 98 05/27/19 04:00 05/27/19 04:00 05/27/19 04:00 05/27/19 04:00 05/27/19 04:00 General: Alert, In no apparent distress, Oriented x3, Cooperative HEENT: Atraumatic Neck: Supple Respiratory: Clear to auscultation bilaterally, Normal air movement Cardiovascular: Normal pulses, Regular rate/rhythm Gastrointestinal: Normal bowel sounds, Soft and benign, Non-distended, No tenderness, No masses, No rebound, No guarding Musculoskeletal: No erythema, No tenderness, No warmth Integumentary: No tenderness/swelling, No erythema, No warmth, No cyanosis Neurological: Normal speech, Normal strength at 5/5 x4 extr, Normal tone, Normal affect Laboratory Data at Discharge: WBC 4.8 K/uL (4.3-10.9) D 05/27/19 05:32 Hgb 11.1 g/dL (12.0-15.0) L 05/27/19 05:32 Hct 33.1 % (36.0-45.0) L 05/27/19 05:32 Plt Count 248 K/uL (152-406) 05/27/19 05:32 PT 11.8 SECONDS (9.5-12.5) 05/25/19 03:50 INR 1.00 05/25/19 03:50 Sodium 145 mmol/L (136-145) 05/27/19 05:32 Potassium 3.5 mmol/L (3.5-5.1) 05/27/19 05:32 BUN 8 mg/dL (7-18) 05/27/19 05:32 Creatinine 0.61 mg/dL (0.55-1.3) 05/27/19 05:32 Glucose 87 mg/dL (74-106) 05/27/19 05:32 Magnesium 1.9 mg/dL (1.8-2.4) 05/27/19 05:32 Total Bilirubin 0.3 mg/dL (0.2-1.0) 05/27/19 05:32 AST 11 U/L (15-37) L 05/27/19 05:32 ALT 15 U/L (12-78) 05/27/19 05:32 Alkaline Phosphatase 54 U/L (45-117) 05/27/19 05:32 Lipase 111 U/L (73-393) 05/25/19 03:50 Home Medications: Citalopram [Celexa*] 20 mg PO DAILY 05/25/19 Duloxetine HCl [Cymbalta] 60 mg PO DAILY 05/25/19 Hydrocodone Bit/Acetaminophen [Hydrocodon-Acetaminophn 10-325] 1 each PO QID 07/06 Ciprofloxacin HCl [Cipro 500 MG Tablet] 500 mg PO BID #14 tab 05/27/19 Lactobacillus Acidophilus [Acidophilus Lactobacilli] 1 each PO TID #30 capsule 05/27/19 metroNIDAZOLE [Flagyl] 500 mg PO Q8H #21 tablet 05/27/19 New Medications: Ciprofloxacin HCl [Cipro 500 MG Tablet] 500 mg PO BID #14 tab Lactobacillus Acidophilus [Acidophilus Lactobacilli] 1 each PO TID #30 capsule metroNIDAZOLE [Flagyl] 500 mg PO Q8H #21 tablet Patient Discharge Instructions: 1. Recommend follow up with her PCP in 1 week to follow up this hospitalization. 2. Patient presented with diffuse abdominal pain, nausea and vomiting. CT scan revealed extensive colitis. Patient was admitted for treatment. Patient received IV antibiotic therapy and IV fluids. Patient improved. C diff culture negative. Viral antigen negative. Stool culture negative. Patient seen and evaluated by surgery. No surgical intervention was required. No evidence of cholecystitis noted. At discharge she is without any significant nausea, vomiting or abdominal pain. Patient has tolerated her diet. At discharge she will continue with Cipro 500 mg 1 pill twice daily and Flagyl 500 mg 3 times a day for 7 days. Patient may continue with a low residue GI soft diet. Recommend follow up with GI to establish care. Patient will require colonoscopy in 4-6 weeks to further evaluate. 3. Patient with underlying depression with anxiety. At discharge she may continue with her medication of Celexa 10 mg daily and Cymbalta 60 mg daily. Further adjustment can be done by her PCP. 4. Patient with chronic pain. Patient may continue with [place] as needed. Recommend to follow up with pain management to further monitor and address. 5. Patient was positive for THC. THC education will be provided. Diet: Low residue GI soft Activity: Ad cassandra Time spent managing pt's care (in minutes): 55
[2019-05-27 09:41] VITALS: BP 111/64; TEMP 98.7
[2019-05-27] MEDS: CITALOPRAM 10 MG TABLET PO SCH (10:04)
[2019-05-27] MEDS: FAMOTIDINE 20 MG TAB PO SCH (10:05)
[2019-05-27] MEDS: DULOXETINE 30 MG CAP PO SCH (10:05)
[2019-05-27] MEDS: LACTOBACILLUS/ACIDOPHILUS TAB PO SCH (10:05)
[2019-05-27 10:17] VITALS: O2SAT 99
== END 2019-05-27 11:30 | disposition home or self-care (01) | DRG 392 ==
LOC: ER 02:55 → ERHOLD 07:06 → 2ND 12:50
PROVIDERS: ADMIT Family Medicine; ATTEND Family Medicine
DX: A09 Infectious gastroenteritis and colitis, unspecified (principal); E87.6 Hypokalemia; E86.0 Dehydration; F41.8 Other specified anxiety disorders; G89.29 Other chronic pain; F12.90 Cannabis use, unspecified, uncomplicated
CPT/HCPCS: 36415; 71045; 74177; 76705; 80048; 80053; 80076; 80307; 81003; 81015; 82274; 83690; 83735; 83880; 84132; 84439; 84443; 84484; 85025; 85610; 87040; 87045; 87046; 87177; 87209; 87425; 87493; 89055; 93005; 96372; 96374; 96375; 99284; J0171; J0744; J1650; J2270; J2405; J2550; J2765; J7030; Q9967